=== PATIENT | male | born 1940 | race Caucasian/White ===

== ENCOUNTER 2017-02-14 10:25 | Emergency (ER) | payer OTHER ==
[~2017-02-14] VITALS: Ht 167.6 cm; Wt 101.9 kg
[~2017-02-14 10:25] MED LIST: ADVIN25/60 INH; ALBUAER19 INH; ALLO100T PO; ASPI81TA28 PO; ATOR-54 PO; CLON1TAB3 PO; COEN1CAP37 PO; DOCU100C31 PO; FURO-85 PO; LATA0.009 OPB; LOSA50TA6 PO; METF1000 PO; METO25TA56 PO; MONT1TAB3 PO; NITR0.4S UT; OMEP20CA9 PO; PLV75 PO; TAMS0.4C59 PO; TERA5CAP PO; WARF-284 PO; ativan PO
[2017-02-14 10:48] VITALS: TEMP 36.5; Ht 167.6 cm; Wt 101.9 kg
[2017-02-14] MEDS ORDERED: CMD75 PO (10:59)
[2017-02-14] MEDS ORDERED: CARI350T27 PO (10:59)
[2017-02-14] MEDS ORDERED: CIPR0.2S OTB (10:59)
[2017-02-14] MEDS ORDERED: ACET-1257 PO (10:59)
[2017-02-14] MEDS ORDERED: LORA-741 PO (10:59)
[2017-02-14] MEDS ORDERED: ALBU18002 INH (10:59)
[2017-02-14] MEDS ORDERED: CLON1TAB3 PO (10:59)
[2017-02-14] MEDS ORDERED: ZSTI SC (10:59)
[2017-02-14] MEDS ORDERED: DOCU-94 PO (10:59)
[2017-02-14] MEDS ORDERED: SNG10 PO (10:59)
[2017-02-14] MEDS ORDERED: GLC/500 PO (10:59)
[2017-02-14] MEDS ORDERED: NTRGSL/4 UT (10:59)
[2017-02-14] MEDS ORDERED: LATA0.5S OP (10:59)
[2017-02-14] MEDS ORDERED: TRAM-10 PO (10:59)
[2017-02-14] MEDS ORDERED: MECL-91 PO (10:59)
[2017-02-14] MEDS ORDERED: CLOP1TAB15 PO (10:59)
[2017-02-14] MEDS ORDERED: LOSA1TAB38 PO (10:59)
[2017-02-14] MEDS ORDERED: MAGN400T6 PO (10:59)
[2017-02-14] MEDS ORDERED: ATOR-22 PO (10:59)
[2017-02-14] MEDS ORDERED: TERA5CAP PO (10:59)
[2017-02-14] MEDS ORDERED: ZYR10 PO (10:59)
[2017-02-14] MEDS ORDERED: FURO-85 PO (10:59)
[2017-02-14] MEDS ORDERED: PRLSR20 PO (10:59)
[2017-02-14] MEDS ORDERED: COEN200T PO (10:59)
[2017-02-14] MEDS ORDERED: ADVIN25/60 INH (10:59)
[2017-02-14] MEDS ORDERED: METO25TA56 PO (11:04)
[2017-02-14 11:07] VITALS: O2SAT 98
[2017-02-14 11:15] LABS: BASO % 0.3 %; BASO ABS # 0.03 K/uL (0-0.2); COMPLETE YES; EOS % 1.2 %; HEMATOCRIT 43.8 % (42-52); IG% 0.2 %; LYMPH % 16.1 %; LYMPH ABS # 1.39 K/uL (1.2-3.4); MEAN CELL VOLUME 94.2 fL (80-100); MEAN CORPUSCULAR HEMOGLOBIN 30.8 pg (25-34); MEAN CORPUSCULAR HGB CONC 32.6 g/dl (32-36); MEAN PLATELET VOLUME 10.5 fL (7.4-10.4); MONO % 10.7 %; NEUT % 71.5 %; PLATELET COUNT 165 K/uL (130-400); RED BLOOD COUNT 4.65 M/uL (4.7-6.1); WHITE BLOOD COUNT 8.61 K/uL (4.8-10.8)
[2017-02-14 11:25] LABS: BUN/CREATININE RATIO 14.4 (10-20); CALCIUM 8.6 mg/dl (8.5-10.1); CREATININE 1.2 mg/dl (0.60-1.40); POTASSIUM 3.9 mmol/L (3.5-5.1)
[2017-02-14 11:28] LABS: ALB/GLOB RATIO 1.1 (0.9-2)
[2017-02-14 11:31] LABS: INR 2.6 (0.9-1.1); PARTIAL THROMBOPLASTIN RATIO 1.3; PROTHROMBIN TIME (PATIENT) 28.6 SECONDS (9.0-12.0)
--- NOTE | 2017-02-14 11:44 | DIAGNOSTIC IMAGING REPORT ---
CHEST ONE VIEW PORTABLE CLINICAL HISTORY: Shortness of breath. COMPARISON STUDY: Chest radiograph July 29, 2015. FINDINGS: There are median sternotomy wires and clips from bypass grafting. Moderate cardiomegaly is unchanged. There is no evidence of pulmonary edema. No pneumothorax or pleural effusion is present. There is no consolidation. IMPRESSION: No acute cardiopulmonary findings. No change in appearance of the chest. Stable cardiomegaly. Electronically signed by: Elliott Zambrano M.D. 02/14/2017 11:43 AM Dictated Date/Time: 02/14/2017 11:42 AM
--- NOTE | 2017-02-14 12:14 | DIAGNOSTIC IMAGING REPORT ---
CT SCAN OF THE BRAIN WITHOUT IV CONTRAST CLINICAL HISTORY: Dizziness. COMPARISON STUDY: No priors. TECHNIQUE: Unenhanced axial CT scan of the brain is performed from the vertex to the skull base. CT DOSE: 788.63 mGycm FINDINGS: Brain parenchyma: There are age-related involutional changes noting mild subcortical and periventricular microangiopathic change. There is no hemorrhage, mass effect, or evidence of acute territorial ischemia by CT criteria. Her-white matter is preserved. No extra-axial fluid collection is seen. Ventricles, sulci, cisterns: Prominent secondary to involutional change. Intracranial vasculature: There is atherosclerotic calcification of the cavernous carotid and vertebral arteries. Calvarium: Unremarkable. Sinuses and mastoids: There is subtotal opacification of left maxillary antrum. The remaining paranasal sinuses are clear. There is a trace left mastoid effusion. The right mastoid air cells are well pneumatized. Orbits: The bony orbits are grossly intact. IMPRESSION: There is no hemorrhage, mass effect, or evidence of acute territorial ischemia by CT criteria. Electronically signed by: Tono Jarvis M.D. 02/14/2017 12:13 PM Dictated Date/Time: 02/14/2017 12:11 PM
[2017-02-14 14:12] VITALS: BP 150/72; PULSE 63; O2SAT 96
--- NOTE | 2017-02-14 14:55 | EMERGENCY ROOM VISIT NOTE ---
History Report prepared by Mac: Karolina Caraballo Under the Supervision of: Julienne ChildO. First contact with patient: 11:28 Chief Complaint: SHORTNESS OF BREATH Stated Complaint: SOB Nursing Triage Summary: SOB and dizziness. gave him NTG bc he has a cardiac hx. After that he became more dizzy. History of Present Illness The patient is a 76 year old male who presents to the Emergency Room with complaints of intermittent dizziness beginning 3 hours DANDY TENDER. The patient has been intermittently dizzy for some time and has seen his PCP for this. Today he became dizzier than usual, and the dizziness lasted for much longer than usual. He states that the room was spinning and he felt like he was going to pass out. He then became short of breath. The patient states that he felt like he was unable to catch his breath. He used his emergency rescue inhaler. He took a nitro and after that his dizziness worsened. The patient states that his shortness of breath lasted for about 15 minutes. Once EMS arrived they placed the patient on [place] O2. He states that his shortness of breath resolved with the oxygen. He does not normally wear oxygen. The patient states that his symptoms have resolved. He denies any current shortness of breath or dizziness. The patient has a history of asthma and anxiety. He states that today's symptoms do not feel like his anxiety. He takes Plavix and Coumadin. He denies numbness, weakness, chest pain, nausea, vomiting, diarrhea, and urinary symptoms. The patient's last 3 INR's have been therapeutic. Source of History: patient, spouse/significant other Onset: 3 hours DANDY TENDER Position: other (global) Quality: other (dizziness) Timing: intermittent Modifying Factors (Worsening): other (nitro) Modifying Factors (Relieving): oxygen Associated Symptoms: + SOB, No chest pain, No diarrhea, No nausea, No numbness, No urinary symptoms, No vomiting, No weakness Review of Systems See HPI for pertinent positives & negatives. A total of 10 systems reviewed and were otherwise negative. Past Medical & Surgical Medical Problems: (1) CAD (coronary artery disease) (2) KS (myocardial infarction) Surgical Problems: (1) H/O angioplasty (2) Stented coronary artery Family History Patient reports no known family medical history. Social History Smoking Status: Never Smoker Alcohol Use: occasionally Drug Use: none Marital Status: Housing Status: lives with family Current/Historical Medications Scheduled Atorvastatin (Lipitor), 20 MG PO DAILY Cetirizine HCl (All Day Allergy), 10 MG PO DAILY Ciprofloxacin Hcl (Otic) (Cetraxal), 1 DROP OTB BID Clopidogrel (Plavix), 75 MG PO DAILY Coenzyme Q10 (Ubidecarenone) (Coenzyme Q10), 200 MG PO DAILY Docusate Sodium (Colace), 1 CAP PO DAILY Fluticasone Prop/Salmeterol (Advair Diskus 250/50 60 Dose), 1 PUFF INH BID Latanoprost (Xalatan 0.005% Oph Radha), 1 DROPS OP HS Losartan Potassium (Cozaar), 100 MG PO DAILY Metformin Hcl (Glucophage), 500 MG PO BIDM Metoprolol Tartrate (Lopressor) (Lopressor), 12.5 MG PO DAILY Montelukast Sod (Montelukast Sodium), 10 MG PO DAILY Nitroglycerin (Nitrostat), 0.4 MG UT PRN Omeprazole (Prilosec), 20 MG PO DAILY Terazosin (Hytrin), 5 MG PO HS Warfarin Sod (Coumadin), 7.5 MG PO DAILY Zoster Vaccine (Zostavax), 0.65 ML SC UD Scheduled PRN Acetaminophen (Tylenol Extra Strength), 500 MG PO UD PRN for Pain or Fever Albuterol Sulfate (Proair Respiclick), 1 PUFF INH DAILY PRN for SOB/Wheezing Carisoprodol (Soma), 350 MG PO TID PRN for MUSCLE SPASMS Clonazepam (Klonopin), 0.5 MG PO HS PRN for Sleep Furosemide (Lasix), 20 MG PO UD PRN for EDEMA Lorazepam (Ativan), 0.5 MG PO TID PRN for Anxiety Meclizine HCl (Meclizine 25), 25 MG PO TID PRN for DIZZINESS Tramadol (Ultram), 50 MG PO Q4H PRN for Pain Miscellaneous Medications Magnesium Oxide (Mag-Ox), 400 MG PO Allergies Coded Allergies: RENE Inhibitors (Unverified Allergy, Mild, Cough, 03/03/15) Cephalexin (Verified Allergy, Unknown, RASH, 09/05/13) Physical Exam Vital Signs Date Time Temp Pulse Resp B/P Pulse Ox O2 Delivery O2 Flow Rate FiO2 02/14/17 14:12 63 19 150/72 96 Room Air 02/14/17 13:23 64 02/14/17 12:25 64 15 127/71 96 Room Air 02/14/17 11:07 98 Nasal Cannula 2.0 02/14/17 10:48 36.5 68 22 158/88 97 Room Air 02/14/17 10:44 Room Air 98 02/14/17 10:38 68 02/14/17 10:31 96 Room Air 02/14/17 10:31 96 Room Air Physical Exam GENERAL: alert, sitting up in bed, well appearing, well nourished, no distress, non-toxic EYE EXAM: normal conjunctiva OROPHARYNX: no exudate, no erythema, lips, buccal mucosa, and tongue normal and mucous membranes are moist NECK: supple, no nuchal rigidity, no adenopathy, non-tender LUNGS: Clear to auscultation. Normal chest wall mechanics HEART: no murmurs, S1 normal and S2 normal ABDOMEN: abdomen soft, non-tender, normo-active bowel sounds, no masses, no rebound or guarding. BACK: Back is symmetrical on inspection and there is no deformity, no midline tenderness, no CVA tenderness. SKIN: no rashes and no bruising UPPER EXTREMITIES: upper extremities are grossly normal. LOWER EXTREMITIES: No pitting edema. Calves are equal bilaterally. NEURO EXAM: Normal sensorium, cranial nerves II-XII intact, normal speech, no weakness of arms, no weakness of legs. No drift. Finger to nose intact. Gross sensation intact. Medical Decision & Procedures ER Provider Diagnostic Interpretation: Radiology results as stated below per my review and the radiologist's interpretation: CT SCAN OF THE BRAIN WITHOUT IV CONTRAST CLINICAL HISTORY: Dizziness. COMPARISON STUDY: No priors. TECHNIQUE: Unenhanced axial CT scan of the brain is performed from the vertex to the skull base. CT DOSE: 788.63 mGycm FINDINGS: Brain parenchyma: There are age-related involutional changes noting mild subcortical and periventricular microangiopathic change. There is no hemorrhage, mass effect, or evidence of acute territorial ischemia by CT criteria. Her-white matter is preserved. No extra-axial fluid collection is seen. Ventricles, sulci, cisterns: Prominent secondary to involutional change. Intracranial vasculature: There is atherosclerotic calcification of the cavernous carotid and vertebral arteries. Calvarium: Unremarkable. Sinuses and mastoids: There is subtotal opacification of left maxillary antrum. The remaining paranasal sinuses are clear. There is a trace left mastoid effusion. The right mastoid air cells are well pneumatized. Orbits: The bony orbits are grossly intact. IMPRESSION: There is no hemorrhage, mass effect, or evidence of acute territorial ischemia by CT criteria. Electronically signed by: Tono Jarvis M.D. 02/14/2017 12:13 PM Dictated Date/Time: 02/14/2017 12:11 PM CHEST ONE VIEW PORTABLE CLINICAL HISTORY: Shortness of breath. COMPARISON STUDY: Chest radiograph July 29, 2015. FINDINGS: There are median sternotomy wires and clips from bypass grafting. Moderate cardiomegaly is unchanged. There is no evidence of pulmonary edema. No pneumothorax or pleural effusion is present. There is no consolidation. IMPRESSION: No acute cardiopulmonary findings. No change in appearance of the chest. Stable cardiomegaly. Electronically signed by: Elliott Zambrano M.D. 02/14/2017 11:43 AM Dictated Date/Time: 02/14/2017 11:42 AM Laboratory Results 02/14/17 10:35 Red Blood Count 4.65, Mean Corpuscular Volume 94.2, Mean Corpuscular Hemoglobin 30.8, Mean Corpuscular Hemoglobin Concent 32.6, Mean Platelet Volume 10.5, Neutrophils (%) (Auto) 71.5, Lymphocytes (%) (Auto) 16.1, Monocytes (%) (Auto) 10.7, Eosinophils (%) (Auto) 1.2, Basophils (%) (Auto) 0.3, Neutrophils # (Auto ) 6.15, Lymphocytes # (Auto) 1.39, Monocytes # (Auto) 0.92, Eosinophils # (Auto ) 0.10, Basophils # (Auto) 0.03 02/14/17 10:35 Test 02/14/17 10:35 02/14/17 11:18 02/14/17 13:18 White Blood Count 8.61 K/uL (4.8-10.8) Red Blood Count 4.65 M/uL (4.7-6.1) Hemoglobin 14.3 g/dL (14.0-18.0) Hematocrit 43.8 % (42-52) Mean Corpuscular Volume 94.2 fL (80-100) Mean Corpuscular Hemoglobin 30.8 pg (25-34) Mean Corpuscular Hemoglobin Concent 32.6 g/dl (32-36) Platelet Count 165 K/uL (130-400) Mean Platelet Volume 10.5 fL (7.4-10.4) Neutrophils (%) (Auto) 71.5 % Lymphocytes (%) (Auto) 16.1 % Monocytes (%) (Auto) 10.7 % Eosinophils (%) (Auto) 1.2 % Basophils (%) (Auto) 0.3 % Neutrophils # (Auto) 6.15 K/uL (1.4-6.5) Lymphocytes # (Auto) 1.39 K/uL (1.2-3.4) Monocytes # (Auto) 0.92 K/uL (0.11-0.59) Eosinophils # (Auto) 0.10 K/uL (0-0.5) Basophils # (Auto) 0.03 K/uL (0-0.2) RDW Standard Deviation 49.8 fL (36.4-46.3) RDW Coefficient of Variation 14.5 % (11.5-14.5) Immature Granulocyte % (Auto) 0.2 % Immature Granulocyte # (Auto) 0.02 K/uL (0.00-0.02) Prothrombin Time 28.6 SECONDS (9.0-12.0) Prothromb Time International Ratio 2.6 (0.9-1.1) Activated Partial Thromboplast Time 34.7 SECONDS (21.0-31.0) Partial Thromboplastin Ratio 1.3 Anion Gap 6.0 mmol/L (3-11) Est Creatinine Clear Calc Drug Dose 60.4 ml/min Estimated GFR () 68.6 Estimated GFR (Non- 59.2 BUN/Creatinine Ratio 14.4 (10-20) Calcium Level 8.6 mg/dl (8.5-10.1) Total Bilirubin 0.3 mg/dl (0.2-1) Aspartate Amino Transf (AST/SGOT) 19 U/L (15-37) Alanine Aminotransferase (ALT/SGPT) 31 U/L (12-78) Alkaline Phosphatase 80 U/L (45-117) Total Protein 7.0 gm/dl (6.4-8.2) Albumin 3.7 gm/dl (3.4-5.0) Globulin 3.3 gm/dl (2.5-4.0) Albumin/Globulin Ratio 1.1 (0.9-2) Bedside Troponin I 0.000 ng/ml (0-0.045) Troponin I < 0.015 ng/ml (0-0.045) Laboratory results per my review. ECG Indication: SOB/dyspnea Rate (beats per minute): 69 Rhythm: atrial flutter Findings: PVC, Q waves (Inferior) Comparison ECG Date: 09/19/15 Change: no significant change ED Course ED COURSE: Vital signs were reviewed and showed hypertensive. The patients medical record was reviewed The above diagnostic studies were performed and reviewed. ED treatments and interventions as stated above. 1128: The patient was evaluated in room C6. A complete history and physical examination was performed. 1250: I updated the patient on his results. 1351: At this time I spoke with Shirin Pacheco PA-C with [facility]. We discussed the patient's case and he will see the patient in the office. 1406: I reevaluated the patient and he would like to be discharged. He does not want to wait for the repeat troponin. 1415: I spoke with Ricardo Islas of [facility]. We discussed the patient 's case. He was in the ED at this time and will evaluate the patient. 1421: Upon reevaluation, the patient is feeling better and resting comfortably. I discussed my findings with the patient and he understands and agrees with the treatment plan. Based on the patients age, coexisting illnesses, exam and lab findings the decision to treat as an outpatient was made. The patient remained stable while under my care. The patient appeared well at the time of discharge. Medical Decision Differential diagnosis includes etiologies such as benign positional vertigo, dehydration, hypovolemia, anemia, tumor, infection, hypoglycemia, electrolyte abnormalities, cardiac sources, intracerebral event, toxicologic, neurologic, as well as others were entertained. Patient is a 76-year-old male who presents the ER via ambulance for dizziness. Following the onset of his dizziness he became short of breath. Denied any chest pain. He does have a history of bypass and stent placement. He follows with cardiology and is in atrial flutter which appears to be baseline with a therapeutic Coumadin at 2.6 today. Labs show no significant anemia or leukocytosis. BMP along with LFTs, bilirubin or unremarkable. Troponins were negative 2 and were 3 hours apart. EKG showed a poor baseline but did appear to be an atrial flutter. Patient was completely back to his baseline upon presentation to the ER. His vitals were unremarkable. His exam is completely nonfocal. He is completely neurologically intact. CT head was negative. Patient currently has an appointment with his cardiology PA at 3 PM. I did call and update shirin in regards to findings. He did review his EKG and labs. He eventually called his attending Dr. Silva who evaluated the patient in the ER and agreed with the discharge and follow-up as an outpatient. I do not believe the symptoms are cardiac but rather favor they were vertiginous which caused his shortness of breath. I did not order a d-dimer for PE as his INR has been therapeutic for the past 3 months. Patient was updated in regards to his findings. He was discharged prior to the final result of his last troponin per his request so he could see his cardiology PA. Discussed with Pt concerning signs and symptoms to watch out for. Pt was instructed to follow up with their PCP and discussed with the patient their option to return to the ED at anytime for persistent or worsening symptoms. The appropriate anticipatory guidance and out-patient management, including indications for return to the emergency department, were explained at length to the patient and understood. Consults Time Called: 1348 Consulting Physician: Shirin Pacheco PA-C Returned Call: [phone] At this time I spoke with Shirin Pacheco PA-C with [facility] cardi[facility]. We discussed the patient's case and he will see the patient in the office. Additional Consults: Time Called: 1419 Consulted Physician: Dr. Silva Returned Call: [phone] Additional Comments: I spoke with Ricardo Islas of [facility] cardiology. We discussed the patient's case. He was in the ED at this time and will evaluate the patient. Impression Primary Impression: Dizzy Additional Impression: Shortness of breath Scribe Attestation The scribe's documentation has been prepared under my direction and personally reviewed by me in its entirety. I confirm that the note above accurately reflects all work, treatment, procedures, and medical decision making performed by me. Departure Information Dispostion Home / Self-Care Referrals Sue Lui M.D. (PCP) Forms HOME CARE DOCUMENTATION FORM, IMPORTANT VISIT INFORMATION Patient Instructions My [facility] Additional Instructions Please follow up with your primary care doctor with in the next 24 hours. Any worsening of your symptoms, please return to the ED immediately. This includes fevers greater than 100.4, dizziness, weakness or numbness in arms or legs, chest pain, recurrence of your shortness of breath or any other concerning signs or symptoms from your standpoint. Your INR today was therapeutic Problem Qualifiers
[2017-03-28] MEDS ORDERED: FLUT1INH INH (08:35)
[2017-03-28] MEDS ORDERED: ALLO100T PO (08:35)
[2017-03-28] MEDS ORDERED: TAMS0.4C38 PO (08:35)
[2017-03-28] MEDS ORDERED: MONT1TAB3 PO (08:35)
== END 2017-02-14 14:19 | disposition home or self-care (01) ==
LOC: EDBD 10:25 → C.EDC 10:26
DX: R42 Dizziness and giddiness (principal); R06.02 Shortness of breath; I25.10 Atherosclerotic heart disease of native coronary artery without angina pectoris; I21.3 ST elevation (STEMI) myocardial infarction of unspecified site; Z79.01 Long term (current) use of anticoagulants; Z51.81 Encounter for therapeutic drug level monitoring

== ENCOUNTER → 2017-03-28 | Day surgery (SDC) | payer OTHER ==
[~2017-03-28] VITALS: Ht 167.6 cm; Wt 99.0 kg
[~2017-03-28] MED LIST changes: +ACET-1257 PO; +ACETAMINOPHEN 325 MG TAB PO PRN; +ALBU18002 INH; -ALBUAER19 INH; -ASPI81TA28 PO; +ATOR-22 PO; -ATOR-54 PO; +ATROPINE SULFATE 0.1 MG/ML 5ML SYR IV PRN; +CARI350T27 PO; +CIPR0.2S OTB; +CLOP1TAB15 PO; +CMD75 PO; -COEN1CAP37 PO; +COEN200T PO; +DIAZEPAM 5MG TAB ONE; +DOCU-94 PO; -DOCU100C31 PO; +FLUT1INH INH; +GLC/500 PO; -LATA0.009 OPB; +LATA0.5S OP; +LORA-741 PO; +LOSA1TAB38 PO; -LOSA50TA6 PO; +MAGN400T6 PO; +MECL-91 PO; -METF1000 PO; +MIDAZOLAM HCL 1 MG/ML 2ML VIAL ONE; -NITR0.4S UT; +NITROGLYCERIN 0.4 MG SL PER TAB CHARGE SL PRN; +NTRGSL/4 UT; -OMEP20CA9 PO; +ONDANSETRON INJ 2 MG/ML 2 ML VIAL IV PRN; -PLV75 PO; +PRLSR20 PO; +SNG10 PO; +SODIUM CHLORIDE 0.9% 1000ML 1,000 ML IV SCH; +SODIUM CHLORIDE 0.9% 1000ML 250 ML IV PRN; +TAMS0.4C38 PO; -TAMS0.4C59 PO; +TRAM-10 PO; -WARF-284 PO; +ZSTI SC; +ZYR10 PO; -ativan PO
[2017-03-28 08:55] VITALS: BP 134/69; PULSE 60; TEMP 36.6; O2SAT 95
[2017-03-28 09:01] VITALS: Ht 167.6 cm; Wt 99.0 kg
--- NOTE | 2017-03-28 10:42 | History & Physical Bridge Note ---
H&P Re-Evaluation Bridge Note: I have examined the patient, reviewed the History & Physical and in the interval since the performance of the History & Physical I have noted the following changes of clinical significance: No changes noted
--- NOTE | 2017-03-28 12:35 | [facility] Post Operative Brief Note ---
Preliminary Procedure Note Procedure Date Mar 28, 2017. Pre-Procedure Diagnosis Positive Stress Test, CAD AUC Score 8 Post-Procedure Diagnosis Severe CAD Procedure(s) Performed Coronary Angiography, Left Heart Cath, LV Angiography, Bypass Graft Angiography Agent Contract Clerk Dr. 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 Prior to occlusion there is a large septal branch and diagonal without compromise LCX: Large with two large marginal branches. 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 The RCA is occluded 100% mid vessel The distal vessel fills via SVG as a thin diffusely diseased vessel with two small posterior ventricular branches THOMAS - LAD Patent SVG - Distal RCA Patent SVG- CX 100% occluded ( chronic ) LV inferior hypokinesis EF 60% Recommendations Medical therapy and/or Counseling Specimens None Fluids (cc crystalloids) 110 Anesthesia Anxiolytic only Benedryl 25mg PO, Valium 5mg PO Procedural Complication(s) None Disposition Clean Room Operator Holding/Recovery
--- NOTE | 2017-03-28 12:44 | Cardiac Catheterization ---
Procedure Note Procedure Date Mar 28, 2017. Pre-Procedure Diagnosis Positive Stress Test AUC Score 8 Post-Procedure Diagnosis Severe CAD Procedure(s) Performed Coronary Angiography, Left Heart Cath, LV Angiography, Bypass Graft Angiography Blind Aide Dr. 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 Prior to occlusion there is a large septal branch and diagonal without compromise LCX: Large with two large marginal branches. 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 The RCA is occluded 100% mid vessel The distal vessel fills via SVG as a thin diffusely diseased vessel with two small posterior ventricular branches THOMAS - LAD Patent SVG - Distal RCA Patent SVG- CX 100% occluded ( chronic ) LV inferior hypokinesis EF 60% No significant progression from post procedure result 08/2015 Hemodynamics Rest Ao: 151/76/107 Final Ao: 157/70/105 LV: 149/12/16 Recommendations Medical therapy and/or Counseling Specimens None Radiation Exposure (mGy) 2912 Contrast (mls) 192 Fluids (cc crystalloids) 110 Procedural Complication(s) None Disposition Seed Analysis Laboratory Assistant Holding/Recovery ACC Data Cardiac Status Clinical evaluation leading to the procedure CAD Presntation: Positive Stress Test (stress performed for observed nonsustatined VT) Anginal Classification: CCS II Heart Failure: No Cardiogenic Shock w/in 24Hrs: No Cardiac Arrest w/in 24Hrs: No Imaging studies past 6 months: Yes Stress studies past 6 months: Yes Standard Exercise Stress Test: No, Yes - Positive Stress Testing w/SPECT MPI: Yes - Positive Coronary Anatomy Dominant: Right Left Main (% Stenosis): Proximal (10%), Distal (10%) LAD (% Stenosis): Mid (100%) D1 (% Stenosis): Normal Circumflex (% Stenosis): Proximal (30%) RCA (% Stenosis): Mid (100%) Grafts - LAD (%): Normal Grafts - Circumflex (%): Ostial (100) Grafts - RCA (%): Normal Left Ventricular Angiography EF (%): 55 Wall Motion: Inferior (Hypokinetic) Mitral Regurgitation: None Diagnostic Physician's Name: Abel De Luna M.D. Status: Elective Closure Device Percutaneous Entry Location: Femoral Closure Device: none - manual hold Recommendations: Medical therapy and/or Counseling
--- NOTE | 2017-03-28 12:51 | Discharge Instructions ---
Discharge Instructions Procedure Procedure Date: Mar 28, 2017. Reason for Visit: Abnormal Lexascan *Dr De Luna Doing*. Discharge Discharge Date: Mar 28, 2017. Discharge Diagnosis: Stable coronary artery disease s/p CABG Last Recorded Wt (Kilograms): 99 Anesthesia Post Anesthesia Instructions: If you have had General Anesthesia or IV Sedation: * Do not drive today. * Resume driving when surgeon permits. * Do not make important decisions or sign legal documents today. * Call surgeon for: 1. Temperature elevations greater than 101 degrees F. 2. Uncontrollable pain. 3. Excessive bleeding. 4. Persistent nausea and vomiting. 5. Medication intolerance (nausea, vomiting or rash). * For nausea and vomiting use only clear liquids such as: tea, soda, bouillon until nausea subsides, then gradually increase diet as tolerated. * If you have any concerns or questions, call your surgeon's office. If physician is unavailable and it is an emergency, call 911 or go to the nearest emergency room. Instructions Activity Recommendations: limitations as noted below Recommended Home Diet: resume previous diet Allergies: Coded Allergies: RENE Inhibitors (Unverified Allergy, Mild, Cough, 03/03/15) Cephalexin (Verified Allergy, Unknown, RASH, 09/05/13) Provider Instructions ACTIVITY RECOMMENDATIONS: It is common to feel weak and fatigue for a few days. * Do not drive or operate any motorized equipment for the next three days. * Limit stair usage (2 or 3 trips a day only) for the next three days. * Do not lift anything heavier than 10 pounds for the next three days. * Do not engage in vigorous exercise or any sports for the next five days. * You may shower the day after your procedure, but do not immerse the area for three days. Cleanse the site gently with soap and water. SPECIAL CARE INSTRUCTIONS: * You may replace the pressure dressing or band-aid the morning after the procedure. * After your procedure, it is normal to have a small bruise or small lump at the site. Examine your site daily for any change in the bruise or lump, redness, swelling, drainage or numbness. Notify your doctor if any change. BLEEDING: * If there is a small amount of bleeding at the site, lie down and apply firm pressure with a clean cloth for ten minutes. When the bleeding stops, lie quietly keeping the procedure limb straight for six hours. Notify your doctor as soon as possible. * If the bleeding does not stop after ten minutes or if there is a large amount of bleeding or spurting, call 911 immediately. Continue to lie down and hold firm pressure until help arrives. SKIN IRRITATION: * You may experience some redness and/or swelling in the area where radiation was administered. If any skin irritation occurs, please contact your family physician. FOLLOW UP VISIT: Keep any scheduled doctor appointments. Follow Up Additional Instructions: Restart Coumadin tonight, metformin Saturday Follow-up with: Dr De Luna's office as scheduled [facility] Recommendations: Call your doctor if: * Temperature above 101 degrees * Pain not relieved by pain medicine ordered * There is increased drainage or redness from any incision * You have any unanswered questions or concerns. Your Doctors Instructions noted above were prepared by provider Abel De Luna. Patient Signature Section: Patient Instructions Signature Page Ray Bennett Patient (or Guardian) Signature/Date: I have read and understand the instructions given to me by my caregivers. Caregiver/RN/Doctor Signature/Date: The above-named patient and/or guardian has received patient instructions on this date. + Original Patient Signature Page (only) stays with chart. Please make copy for patient.
[2017-03-28 15:05] VITALS: BP 136/80; PULSE 60; O2SAT 96
== END | disposition home or self-care (01) ==
LOC: C.CATH 07:56
PROVIDERS: ATTEND Physician Assistant
DX: I25.119 Atherosclerotic heart disease of native coronary artery with unspecified angina pectoris (principal); I48.2 Chronic atrial fibrillation; R94.31 Abnormal electrocardiogram [ECG] [EKG]; I10 Essential (primary) hypertension; Z79.01 Long term (current) use of anticoagulants; E78.5 Hyperlipidemia, unspecified; E66.9 Obesity, unspecified; K21.9 Gastro-esophageal reflux disease without esophagitis; F41.9 Anxiety disorder, unspecified; Z87.442 Personal history of urinary calculi; Z95.5 Presence of coronary angioplasty implant and graft; Z82.49 Family history of ischemic heart disease and other diseases of the circulatory system

== ENCOUNTER → 2017-08-04 | Outpatient (CLI) | payer OTHER ==
[~2017-08-04] MED LIST changes: -ACETAMINOPHEN 325 MG TAB PO PRN; -ADVIN25/60 INH; -ATROPINE SULFATE 0.1 MG/ML 5ML SYR IV PRN; -DIAZEPAM 5MG TAB ONE; -MIDAZOLAM HCL 1 MG/ML 2ML VIAL ONE; -NITROGLYCERIN 0.4 MG SL PER TAB CHARGE SL PRN; -ONDANSETRON INJ 2 MG/ML 2 ML VIAL IV PRN; -SNG10 PO; -SODIUM CHLORIDE 0.9% 1000ML 1,000 ML IV SCH; -SODIUM CHLORIDE 0.9% 1000ML 250 ML IV PRN; -ZSTI SC; -ZYR10 PO
--- NOTE | 2017-08-05 05:27 | PAP/PSG TECHNICIAN REPORT ---
[facility] [employer] Polysomnogram Report Study name: None Report date: 08/05/2017 Study date: 08/04/2017 Referring Physician: Estuardo Pacheco PA-C Name: VALERIE SMART Interpreting Physician: Gunnar Salas M.D. Date of : 1940 [employer] Installer: Koki Kahn [facility]. Sex: Male Age: 76 StudyType: PSG Weight: 219 lbs Height: 76 years, Height 5' 6" Neck Circum:18.25inches BMI: 35.34 Medications: Glucophage 500mg, Magnesium 400 mg, Zyloprim 100mg, Omeprazole 20mg, Lopressor 25mg, Lipitor 20mg, Coumadin 7.5mg, Cozaar 100mg, Soma 350mg, Cetirizine Hcl 10mg,ytrin 5mg, Plavix 75mg, Lasix 20mg, Ativan 0.5mg, Cetraxal 0.2% soln, Advair, Albuterol, Clonazepam 1mg, Nitroglycerin 0.4mg, Meclizine HCl 25mg, Tramadol HCl 50mg, Docusate Sodium 100mg, Tylenol, Coenzyme Q-10 200mg, Xalatan 0.005%, Flomax 0.4mg, Singulair 10mg Patient History Study started on room air with no ETCO2 monitoring in room #6. 76 yr old male here tonight for a possible split study. He has a history of dizziness, suspect secondary to hypotension, orthostasia, vertigo or Moris arrhythmia. He has stable ASCVD, chronic atrial fibrillation/flutter, chronic Coumadin anticoagulation, HTN, Dyslipidemia, anxiety and impotence. He had a psg years ago that showed no SDB. His ESS=4/24. His neck circ=18.25inches Parameters Monitored NPSG: E1-M2, E2-M1, Fp1-M2, Fp2-M1, F3-M2, F4-M2, F4-M1, C3-M2, C4-M2, C4-M1, O1-M2, O2-M2, O2-M1, T3-M2, T4-M1, P3-M2, P4-M1, CHIN1, CHIN2, HR, EKG, Legs, PFLOW, SNOR, FLOW, CFLOW, Tidal Volume, THOR, ABDO, SpO2, PLTH, CPRESS, ETCO2 Wave, ETCO2, pH Sleep Architecture Sleep Stages Time at Lights Off 10:20:26 PM STAGES Time (min.) TST (%) Time at Lights On 4:31:26 AM Wake 125.0 -- Total Recording Time (TRT) 371.00 min. N1 10.0 4 Total Sleep Period (TSP) 334.0 min. N2 137.0 56 Total Sleep Time (TST) 246.0min. N3 68.5 28 Awake Time 125.0 min. REM 30.5 12 Wake after Sleep Onset 107.5 min. Sleep Efficiency (SE) 66 % Sleep Onset Latency (CATHY) 17.5 min. Number of Stage 1 Shifts None Awakenings 11 Stage Changes 45 Number of REM periods 1 REM 30.5 12 REM Latency 232.5 min. NREM 215.5 88 Body Position Analysis Supine Right Left Side Prone Vertical Total Sleep Time (min.) 2.3 0.0 246.0 246.00 0.0 0.0 Total Sleep Time (%) 0% 0% 100% 100 0% N/A% Total Sleep Time REM (min.) 0.0 0.0 30.5 None 0.0 0.0 Total Sleep Time NREM (min.) 0.0 0.0 215.5 None 0.0 0.0 Intermittent Wake (min.) 2.3 0.0 122.7 None 0.0 0.0 Total Sleep Period (%) 0% None None None None None Arousals Myoclonus (PLM) * Events Count Index Events Count Index Spontaneous 7 2 Events Awake (PLMW) 97 46.6 Respiratory 4 0.7 Events Asleep w/ Arousal (PLMA) 11 2.7 PLM 10 3 Events Asleep w/o Arousal (PLMS) 145 35.4 Snoring 1 0 Total Asleep 156 38.0 Total 22 5 Total 253 41 Respiratory Analysis * CA OA MA CH H RERA Total Count 2 0 0 0 39 0 41 Index 0.5 0.0 0.0 0 9.5 0 10.0 Mean Duration 12.2 0.0 0.0 0.00 22.2 0.0 21.7 Longest Duration 12.8 0.0 0.0 0.00 0.0 0.0 45.8 Respiratory Event Summary Total Supine ~Supine Right Left Prone REM NREM Apneas Count 2 N/A 2 N/A 2 N/A 0 2 Index 0.5 N/A 0 N/A 0.5 N/A 0 1 Hypopneas (4% Desat) Count 39 N/A 39 N/A 39 N/A 15 24 Index 9.5 N/A 10 N/A 9.5 N/A 29.5 6.7 Apneas & All Hypopneas Count 41 N/A 41 N/A 41 N/A 15 26 Index 10.0 N/A 10 N/A 10 N/A 29.5 7.2 Respiratory Events (Photographer'S Assistant+All Hyp+RERA) Count 41 N/A 41 N/A 41 N/A 15 26 Index 10.0 N/A 10 N/A 10.0 N/A 29.5 7.2 Respiratory Related Arousal Count 4 N/A 3 N/A 3 N/A 1 2 Index 0.7 N/A 1 N/A 1 N/A 2 1 Snoring Analysis Supine Right Left Prone REM NREM Total Snore duration 10.8 min Snores count N/A N/A 664 N/A 5 659 664 Snore mean duration 1.0 Sec Snores index N/A N/A 162 N/A 9.8 183.5 162.0 TST with snoring (%) 4.4% Desaturation Event Summary: Minimum %SpO2 Event Count Mean/Min/Max Duration(sec.) Desaturation Index % Time In Bed > 90 74 27.3 / 11.0 / 60.0 22.8 55.8 86 - 90 34 21.0 / 4.0 / 47.3 13.7 42.8 81 - 85 1 6.8 / 6.8 / 6.8 12.8 1.3 76 - 80 0 N/A 0.0 0.0 71 - 75 0 N/A 0.0 0.0 66 - 70 0 N/A 0.0 0.0 61 - 65 0 N/A 0.0 0.0 56 - 60 0 N/A 0.0 0.0 51 - 55 0 N/A 0.0 0.0 < 50 0 N/A 0.0 0.0 Total REM NREM Awake <50% 0.0 min. 0.0 min. 0.0 min. 0.0 min. 51 - 60% 0.0 min. 0.0 min. 0.0 min. 0.0 min. 61 - 70% 0.0 min. 0.0 min. 0.0 min. 0.0 min. 71 - 80% 0.0 min. 0.0 min. 0.0 min. 0.0 min. 81 - 90% 154.0 min. 22.9 min. 114.4 min. 16.6 min. 91 - 100% 194.7 min. 7.6 min. 101.1 min. 86.0 min. Average 91 89 90 92 Minimum SpO2 83 83 85 83 Desaturation Event Index 13.9 39.3 7.2 19.7 # Desat. Events below 89% 59 17 21 21 Time(%) with Saturation below 89% 19.4 3.9 13.8 1.7 Time(min.) with Saturation below 89% 67.6 13.5 48.1 6.0 Time (mins) REM (mins) NREM (mins) % of TST SpO2 Below 90% 45 20 N25 35.3 SpO2 Below 88% 15 0 0 10 Heart Rate Analysis Min (bpm) Max (bpm) Average (bpm) Awake 55 71 62 NREM 50 65 62 REM 41 64 63 Overall 41 65 62 Supplemental O2 Values Minimum O2 level: None Value Start Time End Time [employer] Comments Mr. Smart slept in the left position in the bed to start out the study. He then got up to use the restroom and switched to the recliner because he was not comfortable in the bed. Cardiac arrhythmia and PLM's noted, please see print outs. No bruxism noted. Snoring was noted and scored as a 2 on a scale of 1 through 5. (0=no snoring, 5=snoring loud enough to be heard through a closed door or down the chau way). He awoke to use the restroom 1 time during the night. He stated that he slept worse than when at home. He did not qualify for a split night study. The final report will be interpreted and signed by a sleep physician. The completed physician report will then be placed in the patient medical record. Therapy (cm H2O) 0 TIB (min.) 371.0 TST (min.) 246.0 Sleep Onset (min.) 17.5 REM Onset From Sleep (min.) 232.5 Sleep Efficiency % 66 Wakefulness (%) 34 Wakefulness (min.) 125.0 NREM 1 (%) 4 NREM 1 (min.) 10.0 NREM 2 (%) 56 NREM 2 (min.) 137.0 NREM 3 (%) 28 NREM 3 (min.) 68.5 REM (%) 12 REM (min.) 30.5 # Arousals 22 Arousal Index 5 # Snore 664 Snore Index 162.0 AHI 10.0 AHI Supine N/A AHI Non-Supine 10 NREM AHI 7.2 REM AHI 29.5 RDI 10.0 # Obstructive Apnea 0 # Central Apnea 2 # Mixed Apnea 0 # Hypopneas 39 RERAs 0 Total Respiratory Events 54 Time Below SpO2 89% (min.) 61.6 Mean NREM SpO2 (%) 90 Mean REM SpO2 (%) 89 Mean Sleep SpO2 (%) 90 Min NREM SpO2 (%) 85 Min REM SpO2 (%) 83 Position Supine (min.) 2.3 Position Non-supine (min.) 246.0 LM Index Sleep 38.0 LM Index NREM 38.4 LM Index REM 35.4 Mean Heart Rate (bpm) 62 Min Heart Rate (bpm) 41
--- NOTE | 2017-08-06 15:50 | POLYSOMNOGRAPH REPORT ---
CLINICAL DATA: A 76-year-old male with BMI of 35.34, referred by Estuardo Pacheco PA-C, with history of dizziness, ASCVD, atrial fibrillation, anxiety, and fatigue. His Call sleepiness score is 4/24. SLEEP ARCHITECTURE: Total sleep period was 334 minutes. Total sleep time was 246 minutes divided between 215.5 minutes of non-REM sleep and 30.5 minutes of REM sleep. Sleep onset latency was 17.5 minutes. REM latency was delayed at 232.5 minutes. Sleep efficiency was reduced at 66%. Wake after sleep onset was 107.5 minutes. Sleep consisted of stage N1 4%, stage N2 56%, stage N3 28%, and REM 12%. AROUSAL DATA: 22 arousals were recorded for an index of 5 per hour. RESPIRATORY DATA: Mild sleep apnea was documented. The AHI was 10. There were 2 central apneic episodes. The longest duration of apnea was 12.8 seconds. There were 39 hypopneic episodes. The mean duration of hypopnea was 22.2 seconds. OXIMETRY DATA: Nocturnal hypoxemia was seen. Oxygen jorge was 83% during REM. The mean saturation was 91%. Time below 88% was 15 minutes. EKG: Heart rates ranged from 41 to 65 beats per minute. Atrial fibrillation was seen throughout the night. EVENT ATTENDANT'S COMMENTS: The patient slept in the left position at the start, then he switched to a recliner because he was not comfortable in bed. Snoring was [id number], rated 2 on a scale of 1 through 5. IMPRESSION: Mild sleep apnea/hypopnea with an AHI of 10 with mild nocturnal hypoxemia in the setting of chronic atrial fibrillation. RECOMMENDATIONS: The patient may benefit from sleep medicine consultation and/or a repeat sleep study with CPAP or use of an oral appliance. Clinical correlation is needed. DOMINICK
== END | disposition home or self-care (01) ==
LOC: C.NEUR 21:00
PROVIDERS: ATTEND Physician Assistant
DX: R94.31 Abnormal electrocardiogram [ECG] [EKG] (principal); G47.10 Hypersomnia, unspecified